=== PATIENT | male | born 1965 | race Caucasian/White ===

== ENCOUNTER 2017-02-13 00:42 | Observation (INO) ==
[2017-02-13 01:00] LABS: Basophils % 0.4 %; Eosinophils # 0.1 K/mcL (0.0-0.6); Eosinophils % 1.4 %; Hemoglobin 16.6 g/dL (12.9-16.9); Immature Granulocytes % 0.2 % (0-4); Lymphocytes # 4.7 K/mcL (0.6-4.6); Lymphocytes % 47.1 %; Mean Corpuscular HGB Conc 33.9 g/dL (31.6-35.5); Mean Corpuscular Hemoglobin 28.4 pg (28.0-33.3); Mean Corpuscular Volume 83.9 fL (83.0-100.0); Mean Platelet Volume 10.6 fL (9.4-12.4); Monocytes # 0.6 K/mcL (0.0-1.3); Neutrophils # 4.5 K/mcL (1.6-8.9); Platelet Count 138 K/mcL (140-400); Red Blood Count 5.84 M/mcL (4.19-5.50); Red Cell Distribution Width 12.9 % (11.5-14.5); Segmented Neutrophils % 44.9 %
[2017-02-13 01:06] LABS: INR 0.9; Prothrombin Time 10.1 Seconds (9.4-12.1)
[2017-02-13 01:16] LABS: Alanine Aminotransferase 21 Units/L (0-55); Albumin 3.6 g/dL (3.5-5.0); Albumin/Globulin Ratio 1.1 (1.1-2.2); Alkaline Phosphatase 67 Units/L (38-126); Aspartate Amino Transferase 17 Units/L (5-34); BUN/Creatinine Ratio 11 (6-26); Bilirubin,Direct 0.1 mg/dL (0.0-0.5); Bilirubin,Indirect 0.4 mg/dL (0.0-1.2); Bilirubin,Total 0.5 mg/dL (0.2-1.2); Blood Urea Nitrogen 11 mg/dL (8-26); Calcium 9.2 mg/dL (8.6-10.8); Carbon Dioxide 24 mEq/L (19-29); Chloride 107 mEq/L (98-109); Globulin 3.2 g/dL (2.4-3.5); Glucose 141 mg/dL (70-99); Lipase 53 Units/L (8-78); Osmolality,Calculated 296 (280-300); Potassium 3.3 mEq/L (3.5-4.5); Sodium 142 mEq/L (136-145); Total Protein 6.8 g/dL (6.0-8.3); eGFR For African Americans > 60 (> 60); eGFR For Non-African Americans > 60 (> 60)
[2017-02-13] MEDS ORDERED: *HR* HYDROmorphone (PF) 1 MG/ML SYRINGE IVP ONE (01:25)
[2017-02-13] MEDS ORDERED: Ondansetron ODT 4 MG TAB.RAPDIS SL ONE (01:25)
[2017-02-13] MEDS ORDERED: Nitroglycerin 0.4 MG TAB.SUBL SL PRN (01:58)
--- NOTE | 2017-02-13 02:14 | Emergency Department Note ---
Disposition Clinical Impression: Epigastric abdominal pain Chest pain Qualifiers: Chest pain type: unspecified Qualified Code(s): R07.9 - Chest pain, unspecified Disposition: Admitted As Inpatient Condition: Good Referrals: NO,PCP [Primary Care Provider] - Time of Disposition: 03:12 Chest Pain HPI - General Chief Complaint: ED Chest Pain Stated Complaint: CP Time Seen by Provider: 02/13/17 00:50 Source: patient Limitations: no limitations Vital Signs Reviewed: Yes Nursing Notes Reviewed: Yes - History of Present Illness HPI Narrative: 51-year-old male smoker presents with chest pain that awoke him from sleep just prior to arrival. Pain accompanied with with shortness of breath and nausea He describes pain radiating to his back. He mentions he also had RUE pain, but states he has had intermittent UE pain before. Patient does mention history of [place] and CAD, describes, [place] in 2012, as well as a cath without stents around that same time. Severity scale (1-10): 10 - Related Data Home Medications Medication Instructions Recorded Confirmed Aspirin 81 mg PO DAILY 02/26/16 02/26/16 Nitroglycerin [Nitrostat] 0.4 mg SL Q5M PRN 02/13/17 02/13/17 Allergies Allergy/AdvReac Type Severity Reaction Status Date / Time No Known Allergies Allergy Verified 01/11/16 16:28 All systems ED: reviewed and negative except as stated. Constitutional: Denies: fever, chills Eyes: Denies: eye discharge ENT ED: Denies: ear pain Cardiovascular: Reports: as per HPI Respiratory: Reports: as per HPI. Denies: wheezes, hemoptysis, stridor Gastrointestinal: Reports: as per HPI. Denies: diarrhea, constipation Genitourinary: Denies: dysuria Musculoskeletal: Denies: back pain Integumentary: Denies: rash Neurological: Denies: headache, weakness Endocrine: Denies: fatigue Hematological/Lymphatic: Denies: easy bleeding Allergic/Immunologic: Denies: facial swelling Chest Pain PMH - Past Medical History Medical history: Reports: CHF, coronary artery disease, myocardial infarction, other Surgical history: Reports: no surgical history Psychiatric history: Reports: no psych history - Social History Smoking Status: Current every day smoker Alcohol use: Reports: none Drug use: Reports: none Physical Exam - General Limitations: no limitations General appearance: alert, in no apparent distress - Head Head exam: normocephalic - Eye Eye exam: Present: EOMI - ENT ENT exam: normal exam, mucous membranes moist - Neck Neck exam: Present: full ROM - Chest Chest inspection: Present: normal inspection, symmetric chest wall rise - Respiratory Respiratory exam: Present: normal lung sounds bilaterally. Absent: respiratory distress - Cardiovascular Cardiovascular exam: Present: regular rate, normal rhythm - Abdominal Exam Abdominal exam: Present: soft, tenderness Abdominal tenderness: Present: epigastrium - Extremities Exam Extremities exam: Present: normal inspection, full ROM, normal capillary refill - Back Exam Back exam: Present: full ROM - Neurological Exam Neurological exam: Present: alert, oriented X3 - Psychiatric Psychiatric exam: Present: normal affect, normal mood - Skin Skin exam: Present: warm, dry, intact, normal color. Absent: rash, cyanosis, diaphoresis Course Course Narrative: Patient arrives by EMS with complaints of chest pain. Chest pain awoke him from sleep, was accompanied with nausea, radiation into her right upper extremity, accompanied with dyspnea. Patient given aspirin prior to arrival by EMS. On examination is in no acute distress is not toxic. Mild epigastric pain , wth worsening with palpation over his epigastric area. Vital stable. Workup initiated. Analgesics ordered. - Reevaluation(s) Reevaluation #1: Patient's labwork including GI labs and troponin unremarkable. CXR negative, EKG consistent with previous. Patient states no relief after Dilaudid and Zofran. will try nitro. Time: 01:58 Reevaluation #2: Patient did have pain relief with nitroglycerin. Discussed patient with Dr. Davis, also who also had face time with the patient, and performed a bedside ultrasound, it did show gallstones, with no gallbladder wall thickening pericholecystic fluid. Plan will need formal bladder ultrasound in the morning, however due to patient's cardiac risk factors, and improvement with nitroglycerin will disuss with hospitalist for admission. Time: 03:05 Reevaluation #3: Patient discussed with and accepted by hospitalist Dr. Hamlin. Time: 03:11 Vital Signs Temperature 98.6 F 02/13/17 00:49 Pulse Rate 81 02/13/17 00:49 Respiratory Rate 14 02/13/17 00:49 Blood Pressure 115/63 02/13/17 00:49 O2 Sat by Pulse Oximetry 98 02/13/17 00:49 Temperature 98.6 F 02/13/17 00:49 Pulse Rate 66 02/13/17 02:58 Respiratory Rate 18 02/13/17 03:29 Blood Pressure 92/51 02/13/17 03:29 O2 Sat by Pulse Oximetry 96 02/13/17 02:58 Oxygen Delivery Oxygen Delivery Room Air Chest Pain - MDM Narrative Medical decision making narrative: 51-year-old male smoker with known coronary artery disease presents with reported chest pain that awoke him from sleep just prior to arrival. Squad had reported patient had complained of chest pain, dyspnea, radiation to his right upper extremity. On examination patient also had described epigastric pain. His lab work tonight was unremarkable as was his chest x-ray and EKG. He had no relief of his symptoms after Dilaudid and Zofran, but did not have relief after one nitroglycerin. Bedside ultrasound was performed by Dr. Davis did show gallstones, but without any evidence of cholecystitis. Reviewed sign negative. Vitals are stable within normal limits. His pain had been improved. Patient was discussed with hospitalist and was accepted for further evaluation of epigastric pain, and likely cardiac rule out. - Lab Data Lab results reviewed: Yes I reviewed the patient's lab results. Result diagrams: 02/13/17 00:53 02/13/17 00:53 Lab Results 02/13/17 02/13/17 02/13/17 Range/Units 00:53 00:53 00:53 WBC 10.0 (4.3-11.1) K/mcL RBC 5.84 H (4.19-5.50) M/mcL Hgb 16.6 (12.9-16.9) g/dL Hct 49.0 (37.5-50.1) % MCV 83.9 (83.0-100.0) fL MCH 28.4 (28.0-33.3) pg MCHC 33.9 (31.6-35.5) g/dL RDW 12.9 (11.5-14.5) % Plt Count 138 L (140-400) K/mcL MPV 10.6 (9.4-12.4) fL Immature Gran % 0.2 (0-4) % Seg Neutrophils % 44.9 % Lymphocytes % 47.1 % Monocytes % 6.0 % Eosinophils % 1.4 % Basophils % 0.4 % Neutrophils # 4.5 (1.6-8.9) K/mcL Lymphocytes # 4.7 H (0.6-4.6) K/mcL Monocytes # 0.6 (0.0-1.3) K/mcL Eosinophils # 0.1 (0.0-0.6) K/mcL Basophils # 0.0 (0.0-0.2) K/mcL PT 10.1 (9.4-12.1) Seconds INR 0.9 APTT 26.0 (26.0-36.0) Seconds Sodium 142 (136-145) mEq/L Potassium 3.3 L (3.5-4.5) mEq/L Chloride 107 (98-109) mEq/L Carbon Dioxide 24 (19-29) mEq/L BUN 11 (8-26) mg/dL Creatinine 0.97 (0.72-1.25) mg/dL Est GFR ( Amer) > 60 (> 60) Est GFR (Non-Af Amer) > 60 (> 60) BUN/Creatinine Ratio 11 (6-26) Glucose 141 H (70-99) mg/dL Calculated Osmolality 296 (280-300) Calcium 9.2 (8.6-10.8) mg/dL Total Bilirubin 0.5 (0.2-1.2) mg/dL Direct Bilirubin 0.1 (0.0-0.5) mg/dL Indirect Bilirubin 0.4 (0.0-1.2) mg/dL AST 17 (5-34) Units/L ALT 21 (0-55) Units/L Alkaline Phosphatase 67 (38-126) Units/L Troponin I (0-0.03) ng/mL Serum Total Protein 6.8 (6.0-8.3) g/dL Albumin 3.6 (3.5-5.0) g/dL Globulin 3.2 (2.4-3.5) g/dL Albumin/Globulin Ratio 1.1 (1.1-2.2) Lipase 53 (8-78) Units/L 02/13/17 Range/Units 00:53 WBC (4.3-11.1) K/mcL RBC (4.19-5.50) M/mcL Hgb (12.9-16.9) g/dL Hct (37.5-50.1) % MCV (83.0-100.0) fL MCH (28.0-33.3) pg MCHC (31.6-35.5) g/dL RDW (11.5-14.5) % Plt Count (140-400) K/mcL MPV (9.4-12.4) fL Immature Gran % (0-4) % Seg Neutrophils % % Lymphocytes % % Monocytes % % Eosinophils % % Basophils % % Neutrophils # (1.6-8.9) K/mcL Lymphocytes # (0.6-4.6) K/mcL Monocytes # (0.0-1.3) K/mcL Eosinophils # (0.0-0.6) K/mcL Basophils # (0.0-0.2) K/mcL PT (9.4-12.1) Seconds INR APTT (26.0-36.0) Seconds Sodium (136-145) mEq/L Potassium (3.5-4.5) mEq/L Chloride (98-109) mEq/L Carbon Dioxide (19-29) mEq/L BUN (8-26) mg/dL Creatinine (0.72-1.25) mg/dL Est GFR ( Amer) (> 60) Est GFR (Non-Af Amer) (> 60) BUN/Creatinine Ratio (6-26) Glucose (70-99) mg/dL Calculated Osmolality (280-300) Calcium (8.6-10.8) mg/dL Total Bilirubin (0.2-1.2) mg/dL Direct Bilirubin (0.0-0.5) mg/dL Indirect Bilirubin (0.0-1.2) mg/dL AST (5-34) Units/L ALT (0-55) Units/L Alkaline Phosphatase (38-126) Units/L Troponin I 0.00 (0-0.03) ng/mL Serum Total Protein (6.0-8.3) g/dL Albumin (3.5-5.0) g/dL Globulin (2.4-3.5) g/dL Albumin/Globulin Ratio (1.1-2.2) Lipase (8-78) Units/L - Radiology Data Radiology results reviewed: Yes I reviewed the patient's radiology results. - EKG Data EKG attestation: Yes I reviewed and interpreted this EKG. EKG results narrative: Normal sinus rhythm, no ST changes or to signs of ischemia; right bundle branch block consistent with previous EKG Heart Score - Score History: Slightly Suspicious EKG: Normal Age: 45-65 Risk Factors: Equal/Greater than 3 risk factor or history of atherosclerotic disease Troponin: Less than normal limit HEART Score Total: 3
--- NOTE | 2017-02-13 03:05 | Emergency Department Note ---
Disposition Clinical Impression: Chest pain, Epigastric abdominal pain Disposition: Admitted As Inpatient Condition: Good General Adult HPI - General Chief complaint: ED Chest Pain Stated complaint: CP Time Seen by Provider: 02/13/17 00:50 Source: patient Limitations: no limitations - History of Present Illness Pain Scale: 10 - Related Data Home Medications Medication Instructions Recorded Confirmed Aspirin 81 mg PO DAILY 02/26/16 02/13/17 Nitroglycerin [Nitrostat] 0.4 mg SL Q5M PRN 02/13/17 02/13/17 Allergies Allergy/AdvReac Type Severity Reaction Status Date / Time No Known Allergies Allergy Verified 01/11/16 16:28 Constitutional: Denies: fever, chills Eyes: Denies: eye discharge ENT ED: Denies: ear pain Cardiovascular: Reports: as per HPI Respiratory: Reports: as per HPI. Denies: wheezes, hemoptysis, stridor Gastrointestinal: Reports: as per HPI. Denies: diarrhea, constipation Genitourinary: Denies: dysuria Musculoskeletal: Denies: back pain Integumentary: Denies: rash Neurological: Denies: headache, weakness Endocrine: Denies: fatigue Hematological/Lymphatic: Denies: easy bleeding Allergic/Immunologic: Denies: facial swelling Past Medical History - Past Medical History Medical history: Reports: CHF, coronary artery disease, myocardial infarction, other Surgical history: Reports: no surgical history Psychiatric history: Reports: no psych history - Social History Smoking Status: Current every day smoker Smokeless Tobacco Status: No Alcohol use: Reports: none Drug use: Reports: none Physical Exam - General Limitations: no limitations General appearance: alert, in no apparent distress Course Vital Signs Temperature 98.6 F 02/13/17 00:49 Pulse Rate 81 02/13/17 00:49 Respiratory Rate 14 02/13/17 00:49 Blood Pressure 115/63 02/13/17 00:49 O2 Sat by Pulse Oximetry 98 02/13/17 00:49 Temperature 97.5 F L 02/13/17 04:57 Pulse Rate 64 02/13/17 04:57 Respiratory Rate 22 02/13/17 04:57 Blood Pressure 109/64 02/13/17 04:57 O2 Sat by Pulse Oximetry 94 02/13/17 04:57 Oxygen Delivery Oxygen Delivery Room Air Medical Decision Making - Lab Data Result diagrams: 02/13/17 00:53 02/13/17 00:53 Lab Results 02/13/17 02/13/17 02/13/17 Range/Units 00:53 00:53 00:53 WBC 10.0 (4.3-11.1) K/mcL RBC 5.84 H (4.19-5.50) M/mcL Hgb 16.6 (12.9-16.9) g/dL Hct 49.0 (37.5-50.1) % MCV 83.9 (83.0-100.0) fL MCH 28.4 (28.0-33.3) pg MCHC 33.9 (31.6-35.5) g/dL RDW 12.9 (11.5-14.5) % Plt Count 138 L (140-400) K/mcL MPV 10.6 (9.4-12.4) fL Immature Gran % 0.2 (0-4) % Seg Neutrophils % 44.9 % Lymphocytes % 47.1 % Monocytes % 6.0 % Eosinophils % 1.4 % Basophils % 0.4 % Neutrophils # 4.5 (1.6-8.9) K/mcL Lymphocytes # 4.7 H (0.6-4.6) K/mcL Monocytes # 0.6 (0.0-1.3) K/mcL Eosinophils # 0.1 (0.0-0.6) K/mcL Basophils # 0.0 (0.0-0.2) K/mcL PT 10.1 (9.4-12.1) Seconds INR 0.9 APTT 26.0 (26.0-36.0) Seconds Sodium 142 (136-145) mEq/L Potassium 3.3 L (3.5-4.5) mEq/L Chloride 107 (98-109) mEq/L Carbon Dioxide 24 (19-29) mEq/L BUN 11 (8-26) mg/dL Creatinine 0.97 (0.72-1.25) mg/dL Est GFR ( Amer) > 60 (> 60) Est GFR (Non-Af Amer) > 60 (> 60) BUN/Creatinine Ratio 11 (6-26) Glucose 141 H (70-99) mg/dL Calculated Osmolality 296 (280-300) Calcium 9.2 (8.6-10.8) mg/dL Total Bilirubin 0.5 (0.2-1.2) mg/dL Direct Bilirubin 0.1 (0.0-0.5) mg/dL Indirect Bilirubin 0.4 (0.0-1.2) mg/dL AST 17 (5-34) Units/L ALT 21 (0-55) Units/L Alkaline Phosphatase 67 (38-126) Units/L Troponin I (0-0.03) ng/mL Serum Total Protein 6.8 (6.0-8.3) g/dL Albumin 3.6 (3.5-5.0) g/dL Globulin 3.2 (2.4-3.5) g/dL Albumin/Globulin Ratio 1.1 (1.1-2.2) Lipase 53 (8-78) Units/L 02/13/17 Range/Units 00:53 WBC (4.3-11.1) K/mcL RBC (4.19-5.50) M/mcL Hgb (12.9-16.9) g/dL Hct (37.5-50.1) % MCV (83.0-100.0) fL MCH (28.0-33.3) pg MCHC (31.6-35.5) g/dL RDW (11.5-14.5) % Plt Count (140-400) K/mcL MPV (9.4-12.4) fL Immature Gran % (0-4) % Seg Neutrophils % % Lymphocytes % % Monocytes % % Eosinophils % % Basophils % % Neutrophils # (1.6-8.9) K/mcL Lymphocytes # (0.6-4.6) K/mcL Monocytes # (0.0-1.3) K/mcL Eosinophils # (0.0-0.6) K/mcL Basophils # (0.0-0.2) K/mcL PT (9.4-12.1) Seconds INR APTT (26.0-36.0) Seconds Sodium (136-145) mEq/L Potassium (3.5-4.5) mEq/L Chloride (98-109) mEq/L Carbon Dioxide (19-29) mEq/L BUN (8-26) mg/dL Creatinine (0.72-1.25) mg/dL Est GFR ( Amer) (> 60) Est GFR (Non-Af Amer) (> 60) BUN/Creatinine Ratio (6-26) Glucose (70-99) mg/dL Calculated Osmolality (280-300) Calcium (8.6-10.8) mg/dL Total Bilirubin (0.2-1.2) mg/dL Direct Bilirubin (0.0-0.5) mg/dL Indirect Bilirubin (0.0-1.2) mg/dL AST (5-34) Units/L ALT (0-55) Units/L Alkaline Phosphatase (38-126) Units/L Troponin I 0.00 (0-0.03) ng/mL Serum Total Protein (6.0-8.3) g/dL Albumin (3.5-5.0) g/dL Globulin (2.4-3.5) g/dL Albumin/Globulin Ratio (1.1-2.2) Lipase (8-78) Units/L Attestation Statement - Attestation Attestation: I examined this patient and my medical decision-making was reviewed with the CASING FLUID TENDER/PA/Advanced Practice Nurse/Resident Physician. I agree with the documented findings, disposition and treatment plan as described except to the extent set forth below. [id number] time provided With history of coronary artery disease. Pain was epigastric. I did perform a [id number] right upper quadrant ultrasound and have identified suspected gallstones but without gallbladder wall thickening or pericholecystic fluid. Negative sonographic Frey sign. EKG reviewed by me
[2017-02-13] MEDS ORDERED: Naloxone 0.4 MG/ML INJ IVP PRN (03:17)
[2017-02-13] MEDS ORDERED: Ondansetron 4 MG/2 ML VIAL IVP PRN (03:17)
[2017-02-13] MEDS ORDERED: Potassium Chloride Elixir 20 MEQ/15 ML UDC PO ONE (03:21)
--- NOTE | 2017-02-13 04:15 | Internal Med History&Physical ---
Date of Encounter: 02/13/17 Time of Encounter: 04:12 Assessment and Plan (1) Chest pain Current visit: Yes Status: Acute pt with a history of HTN not being managed since he lost his insurance and has not had any followup, also has significant cigarette smoking history, his cath in 2009 reported; Left Main Coronary Artery, no obstructing lesions in the left main coronary artery. Left Anterior Descending Artery; a 20 to 30% diffuse stenosis in the left anterior descending artery, Left Circumflex Artery; luminal irregularities in the left circumflex artery, Right Coronary Artery; dominant to the posterior circulation, luminal irregularities in the right coronary artery he additionally has significant family history of premature CAD, we will admit for ACS r/o, his admission EKG is unchanged from prior, troponin is unremarkable, we will cycle trops, do telemonitoring, check A1c and Lipid profile NPO except meds for stress test in AM Qualifiers: Chest pain type: precordial pain Qualified Code(s): R07.2 - Precordial pain (2) Hypokalemia Current visit: Yes Status: Acute etiology unclear, will replace and follow BMP (3) HTN (hypertension) Current visit: Yes Status: Chronic he reports being prescribed antihypertensives but has not been adherent with it , his BP here is normotensive, we will monitor Qualifiers: Hypertension type: essential hypertension Qualified Code(s): I10 - Essential (primary) hypertension (4) Tobacco abuse Current visit: Yes Status: Chronic he used to smoke 2-3ppd but has cut down and still continues to reduce his use, we will encourage that Internal Medicine - H&P: HPI Chief complaint: Chest pain Admitted From: Emergency Dept Plans for Post Hospital Care: Home History of present illness: Mr. Wolff is a 51 year old male with a history of HTN not on medications/ tobacco abuse/non obstructive CAD was brought in via Squad for Chest pain. He was in his usual state of health until between 9:30pm to 10pm when he was rudely awoken with sharp right sided chest pain. It was 10/10 in severity, radiated to the back and lasted until it was relieved with nitro in the ER of [place]. Aspirin and Dilaudid did not relieve the pain earlier. The pain improved in terms of severity but became pressure-like and moved retrosternally, still lingering at 4-5/10 in severity. The pain was associated with dyspnea, nausea and dry heaving. No lightheadedness, diaphoresis, palpitations or feeling of apprehension. Of note he reports that this is his worst pain ever, he was admitted here in 2009 with NSTEMI and had a cardiac cath with findings of non obstructive CAD. Past Med Surg Social Fam HX - Past Medical History Source: patient Medical history: coronary artery disease (non obstructive), hypertension (not on medications), myocardial infarction (NSTEMI in 2010), other Psychiatric history: no psych history - Past Surgical History Surgical History: angioplasty/stent, other (cardiac cath in 2009) - Social History Smoking Status: Current every day smoker Packs per day: 1/2 ppd currently, used to be 2-3ppd years ago, smoked since 12 years Smokeless Tobacco Status: No Alcohol use: none Drug use: none Occupational status: employed (at [email or web address]) Current living situation: Home - Independent, With Family Activity Level: Independent ambulation Additional social history: and lives with his family, no children - Family History Mother Hx Family Cardiac Disorders: Yes (RI) - Additional Family History Additional family history: his sister had an RI in her early 30's and is s/p CABG, father of colon cancer, multiple family members on his side with cancer, mother is alive but has HTN, RI's, and dementia Internal Medicine - H&P: Meds Aspirin 81 mg PO DAILY 02/26/16 [History] Nitroglycerin [Nitrostat] 0.4 mg SL Q5M PRN 02/13/17 [History] Allergies No Known Allergies Allergy (Verified 01/11/16 16:28) All Systems PM: A 10-system review of systems was performed and is negative for pertinent findings except as documented above in the HPI. - Constitutional Vitals: Temp Pulse Resp BP Pulse Ox 98.6 F 66 18 92/51 96 02/13/17 00:49 02/13/17 02:58 02/13/17 03:29 02/13/17 03:29 02/13/17 02:58 PHYSICAL EXAMINATION: GENERAL: Adult male, lying in bed with no sign of distress, Alert, HEENT: NC/AT, EOMI, PERRLA, anicteric sclera, conjunctiva normal, clear nares, moist mucous membranes, RESP: lungs are clear to auscultation bilaterally, good AE bilaterally, No crackles or wheeze CARDIO: normal heart sounds, RRR with no murmurs, GI: Soft, full, no tenderness, no organomegaly felt, normal bowel sounds heard MUSCULOSKELETAL: no deformities noted, no discoloration NEUROLOGIC: CN 2-12 intact grossly. No motor/sensory deficit appreciated, PSYCHIATRY: AAO x 3. Mood is fair, SKIN: tattoos on trunk and upper extremities Internal Med - H&P Results - Labs CBC & Chem 7: 02/13/17 00:53 02/13/17 00:53 - EKG Data -: EKG Interpreted by Myself EKG shows normal: sinus rhythm (RBBB) - EKG Data Prior EKG available for review: yes When compared to previous EKG: there is no significant change - Diagnostic Studies Chest x-ray Status: image reviewed by me
[2017-02-13] MEDS ORDERED: *HR* Enoxaparin 40 MG/0.4 ML SYRINGE SQ SCH (06:00)
[2017-02-13 06:49] LABS: BUN/Creatinine Ratio 15 (6-26); Blood Urea Nitrogen 13 mg/dL (8-26); Calcium 9.1 mg/dL (8.6-10.8); Carbon Dioxide 24 mEq/L (19-29); Chloride 111 mEq/L (98-109); Chol/HDL Ratio 4.9 (0-4.9); Cholesterol 157 mg/dL (< 200); Glucose 120 mg/dL (70-99); HDL Cholesterol 32 mg/dL (40-59); LDL Cholesterol,Calculated 90 mg/dL (0-99); Magnesium 2.1 mg/dL (1.6-2.6); Osmolality,Calculated 291 (280-300); Phosphorous 2.7 mg/dL (2.3-4.7); Sodium 140 mEq/L (136-145); Triglycerides 173 mg/dL (< 150); eGFR For African Americans > 60 (> 60); eGFR For Non-African Americans > 60 (> 60)
[2017-02-13 06:53] LABS: Potassium 5.1 mEq/L (3.5-4.5)
[2017-02-13 07:07] LABS: Hemoglobin A1C 5.4 %
[2017-02-13] MEDS ORDERED: Aspirin 81 MG TAB.CHEW PO SCH (09:00)
--- NOTE | 2017-02-13 11:59 | Nuclear Medicine Stress Report ---
Exercise Nuclear Stress Name: Gael Wolff Date of Study: 02/13/2017 Date: 1965 Ht: 70.0 in Medical Record#: [id number] Age: 51 Wt: 156.0 lb Gender: Male Order #: [id number] Location: [facility] OP Room: Supervising Provider: Sabra Antonio CNP Reading Physician: Zaida Narayan DO Ordering Physician: Victorina Sullivan CNP Primary Care Physician: Indira Diego CNP Stress Technologist: Estella Zimmer, SALES MARKETING DIRECTOR,CP Autocad Designer: Geovanni Horton Indications: Chest Pain Impression: Perfusion imaging interpretation challenged by patient motion. There is a small sized, mild intensity distal anteroseptal wall perfusion abnormality during stress in which mild ischemia cannot be ruled out. Exercise ECG was non-diagnostic for ischemia. Exercise capacity was good. Normal hemodynamic response. Patient had no chest pain with stress. No arrhythmias noted with stress. Gated EF = 64%. History: History of Smoking Stress Test Summary: Stress Test Type: Treadmill Protocol: Alberto Baseline Information: Initial Heart Rate: 72 Blood Pressure: 102/70 Stress Information: Stress Time: 9 min 18 sec Test Terminated Due to (primary): Fatigue Maximum Blood Pressure: 148/62 Maximum Heart Rate: 151 Percent Maximum Heart Rate Achieved: 90 Double Product: 01008 METS Reached: 10.1 Symptoms: Fatigue Nuclear Summary: SPECT myocardial perfusion imaging using Tc99m Sestamibi given intravenously was performed at rest and following cardiac stress testing. The resting images were obtained following initial dose of 11.3 mCi. Following stress an additional dose of 35.3 mCi was given at peak exercise or 30 seconds post regadenoson infusion. Medication Given: Time Medication Dose Units Route Findings: Stress Note * Resting ECG demonstrated normal sinus rhythm with RBBB and nonspecific ST abnormalities. * Exercise ECG is non diagnostic for ischemia due to non-specific ST and T wave changes. * No arrhythmias were noted during stress. * Patient had no chest pain during stress. * The exercise capacity was good. Hemodynamic responses * Normal hemodynamic responses to exercise. Study Quality * Somewhat technically challenging due to horizontal patient motion. Gated EF % * Gated EF = 64%. Left Ventricle * The left ventricle is not dilated. NORMALS * Normal wall motion. TID * No evidence of transient ischemic dilatation. Lung Uptake * There is no evidence of increase lung uptake. PERFUSION * There is a small sized, mild intensity stress perfusion defect involving the distal anteroseptal wall. * Other areas demonstrate normal rest and stress perfusion. Updated by Zaida Narayan on 02/13/2017 11:53:28 AM electronically signed on 02/13/2017 11:54:16 AM with status of Final
[2017-02-13 15:26] VITALS: BP 138/75
--- NOTE | 2017-02-13 17:57 | Discharge Summary ---
Date of Encounter: 02/13/17 Time of Encounter: 10:10 - Discharge Diagnosis (1) Chest pain Priority: Primary Status: Acute Comments: Patient reports sudden onset chest pain, sharp that awakened him from sleep at 10:30 PM. Is right-sided and radiates into his back and right upper back. He does report dry heaving and diaphoresis with this pain. This area is tender to palpation right upper quadrant. Patient states that primarily he eats Poss to with Mosotho dressing enhanced images with mayonnaise. He had eaten the pasta with Mosotho dressing dressing at 8:30 PM last night. Patient had a stress test today that showed a small sized mild intensity distal anterior septal wall perfusion abnormality in which mild ischemia cannot be ruled out. I did speak with Dr. Dennis about this finding, this is not concerning and patient can follow up outpatient. Exercise ECG was nondiagnostic for ischemia. Gated EF is 64%. He did not have any chest pain with the stress test and there were no arrhythmias with the stress test. In addition to a stress test finding, I do believe that his right-sided chest pain with nausea vomiting and diaphoresis, radiation to right back is gallbladder related. The area is tender to palpation. Patient states that he is aware that he has gallstones. Liver panel is within normal limits. Triglycerides are elevated. Patient states that he does not follow-up with his primary care physician because he does not have insurance and he does not have the money to pay out of pocket. I did discuss with him the importance of following up to have this problem looked at and resolved. He is aware that in the future he may need surgery. Qualifiers: Chest pain type: unspecified Qualified Code(s): R07.9 - Chest pain, unspecified (2) Epigastric abdominal pain Priority: Secondary Status: Acute Comments: Plan as above. (3) HTN (hypertension) Priority: Secondary Status: Chronic Comments: Well-controlled in inpatient setting. Patient does have antihypertensive medication at home, however, he does not always take it. I have urged patient to continue taking his medication and follow up with primary care. Qualifiers: Hypertension type: essential hypertension Qualified Code(s): I10 - Essential (primary) hypertension (4) Tobacco abuse Priority: Secondary Status: Chronic Comments: Patient is not interested in smoking cessation at this time. (5) Hypokalemia Priority: Secondary Status: Acute Comments: Resolved. Potassium is 4.2 prior to discharge. - Discharge Medications Home Medications: Aspirin 162 mg PO DAILY 02/26/16 [History] Cyclobenzaprine [Flexeril] 10 mg PO TID tablet 02/13/17 [Rx] Nitroglycerin [Nitrostat] 0.4 mg SL Q5M PRN 02/13/17 [History] Allergies/Adverse Reactions: Allergies No Known Allergies Allergy (Verified 01/11/16 16:28) Procedures/tests Complete & Pending: Procedures Performed prior 72 hours Category Date Time Status NM guillermo perf SPECT multi [NM] Routine Exams 02/13/17 03:43 Taken SP exercise nuclear stress Routine Y 02/13/17 07:45 Completed Date of admission: 02/13/17 03:37 Primary care physician: Indira Diego CNP Discharging clinician: Aleena Singh Anticipated date of discharge: 02/13/17 - Patient Status Disposition: Home, Self-Care Functional capacity at discharge: independent ambulation Overall status at discharge: patient is back to baseline - Discharge Instructions Follow Up With: NO,PCP [Non-Partnered Physician] - Additional Instructions: Please follow up with cardiology in the office in the next 2 weeks. Follow up with your primary care physician in the next week or so for a recheck. You will need to see your doctor about your gallbladder and for continued testing. Try to eat a low fat diet. Return to the ER for pain that returns or for any other problem or concern. - Diet and Activity Activity: increase activity as tolerated Diet: low fat, low cholesterol Interval History: Patient presents to the emergency department last night for right upper quadrant pain that awakened him at 10:30 last night. He says that the pain is sharp and is and has right upper abdomen, low chest with radiation straight through to the back and right upper back. He reports dry heaving and diaphoresis with this. He presented to the emergency department got some relief with IV pain medication. His abdomen is tender to palpation in right upper quadrant and epigastric area. Patient states that he primarily eats pasta with oil and hands seem much as with mayonnaise. He says that he cannot afford much more than that to eat. Patient does state that he has a history of gallstones and has not followed up with that. I am unable to locate any documentation of this in our system. Patient did have a mild abnormality during the stress test in which mild ischemia could not be ruled out. I did speak with Dr. Dennis about this finding , he says that this is not concerning a patient can be followed in the office in the next 2 weeks. Exercise ECG was nondiagnostic for ischemia, patient did not have chest pain with stress and there were no arrhythmias noted. Gated EF is 64%. Patient's lungs are clear, S1-S2 regular rate and rhythm, abdomen is soft and tender to palpation in the epigastric and right upper quadrant. Bowel sounds are present. There is no peripheral edema and peripheral pulses are +2 upper and lower. Patient's potassium was normalized at 4.2 on discharge. All other labs are within normal limits. A1c is 5.4 despite elevated Accu-Cheks here. Patient is nonadherent to his antihypertensive medication regimen. He says that he had lost his insurance and was not able to always afford his medication. His blood pressure is well controlled during admission. I did urge patient to follow-up with primary care regarding his Accu-Cheks, his hypertension, medication refills, and for further testing of his gallbladder and or EGD for epigastric pain. Patient is stable and appropriate for discharge. Hospital course: Mr. Wolff is a 51 year old male Time spent discussing smoking cessation with patient: 3 to 10 minutes - Time Spent with Patient Total time spent providing and/or coordinating discharge services: Less than 30 minutes - Constitutional Vitals: Temp Pulse Resp BP Pulse Ox 97.7 F 72 15 138/75 96 02/13/17 15:25 02/13/17 15:25 02/13/17 15:25 02/13/17 15:25 02/13/17 15:25 General appearance: Present: cooperative, A&O X 3, pleasant, answers questions appropriately - Head Head exam: Present: normal inspection - Neck Neck exam general surgery: Present: normal inspection. Absent: lymphadenopathy , tenderness - Respiratory Respiratory exam: Present: CTAB. Absent: chest wall tenderness, rales, respiratory distress, rhonchi, stridor, wheezes - Cardiovascular Cardiovascular exam: Present: RRR, +S1, +S2. Absent: diastolic murmur, systolic murmur - GI/Abdominal GI/Abdominal exam: Present: normal bowel sounds, soft. Absent: distended, guarding, tenderness - Extremities Exam Extremities exam: Present: normal capillary refill, normal inspection, warm. Absent: pedal edema, tenderness - Neurological Exam Neurological exam: Present: alert, oriented X3, no focal deficits
--- NOTE | 2017-02-14 11:02 | Electrocardiograph Report ---
[address] [address] Test Date: 2017-02-13 Pat Name: Gael Wolff Department: 104 Room: 3B39 Gender: M Tobacco Classer: SITA : 1965 Requested By: Simoen Gambino Order Number: [id number] Reading MD: Brook Mitchell Measurements Intervals [place] Rate: 68 P: 58 MS: 131 QRS: 76 QRSD: 141 T: 50 QT: 419 QTc: 437 Interpretive Statements SINUS RHYTHM RIGHT BUNDLE BRANCH BLOCK Electronically Signed On 02-14-2017 11:00:21 EDT by Brook Mitchell
== END 2017-02-13 19:20 | disposition home or self-care (01) ==
LOC: EMEROO 00:42 → 3BNU 00:42
PROVIDERS: ADMIT Internal Medicine; ATTEND Nurse Practitioner Family

== ENCOUNTER 2021-11-10 04:58 | Observation (INO) ==
[2021-11-10] MEDS ORDERED: Isovue-370 500 ML BOTTLE IVP ONE (05:16)
[2021-11-10] MEDS ORDERED: Ondansetron 4 MG/2 ML VIAL IVP ONE (05:17)
[2021-11-10] MEDS ORDERED: 0.9 % Sodium Chloride 1,000 ML IVC ONE (05:18)
[2021-11-10] MEDS ORDERED: 0.9 % Sodium Chloride 500 ML IVC ONE (05:20)
[2021-11-10 05:32] LABS: VBG HCO3 25 mEq/L (21-27); VBG PCO2 45 mmHg (41-51); VBG PH 7.36 pH Units (7.32-7.42); VBG PO2 105 mmHg (25-50)
[2021-11-10 05:33] LABS: Basophils % 0.4 %; Eosinophils # 0.2 K/mcL (0.0-0.6); Eosinophils % 1.7 %; Hematocrit 48.2 % (37.5-50.1); Immature Granulocytes % 0.1 % (0-4); Lymphocytes # 4.4 K/mcL (0.6-4.6); Mean Corpuscular HGB Conc 33.2 g/dL (31.6-35.5); Mean Corpuscular Hemoglobin 29.3 pg (28.0-33.3); Mean Corpuscular Volume 88.1 fL (83.0-100.0); Mean Platelet Volume 10.1 fL (9.4-12.4); Monocytes # 0.8 K/mcL (0.0-1.3); Monocytes % 8.6 %; Neutrophils # 4.1 K/mcL (1.6-8.9); Platelet Count 184 K/mcL (140-400); Red Blood Count 5.47 M/mcL (4.19-5.50); Red Cell Distribution Width 12.9 % (11.5-14.5); Segmented Neutrophils % 43.2 %; White Blood Count 9.5 K/mcL (4.3-11.1)
[2021-11-10 05:43] LABS: Alanine Aminotransferase 14 Units/L (7-52); Albumin 3.8 g/dL (3.5-5.7); Albumin/Globulin Ratio 1.5 (1.1-2.2); Alkaline Phosphatase 66 Units/L (34-104); Aspartate Amino Transferase 12 Units/L (13-39); BUN/Creatinine Ratio 20 (6-26); Bilirubin,Total 0.5 mg/dL (0.3-1.0); Blood Urea Nitrogen 18 mg/dL (6-20); Calcium 8.4 mg/dL (8.6-10.3); Carbon Dioxide 25 mEq/L (23-29); Chloride 109 mEq/L (98-107); Ethanol < 10 mg/dL (Less than 10); Globulin 2.5 g/dL (2.4-3.5); Glucose 194 mg/dL (70-105); Lipase 30 Units/L (11-82); Magnesium 2.2 mg/dL (1.6-2.6); Osmolality,Calculated 301 (280-300); Potassium 3.8 mEq/L (3.5-5.1); Sodium 142 mEq/L (136-145); Total Protein 6.3 g/dL (6.4-8.9); Troponin I < 0.03 ng/mL (< 0.04); eGFR For African Americans > 60 (> 60); eGFR For Non-African Americans > 60 (> 60)
[2021-11-10 06:05] LABS: Platelet Estimate Normal (Normal); Reactive Lymphocytes Present (Not Present)
[2021-11-10 06:35] LABS: Influenza A PCR Negative (Negative); Influenza B PCR Negative (Negative); Resp. Syncytial Virus PCR Negative (Negative)
[2021-11-10 06:47] LABS: SARS-CoV-2 by PCR (In House) Negative (Negative)
[2021-11-10 07:37] LABS: Prothrombin Time 10.8 Seconds (9.4-12.1)
[2021-11-10 07:39] LABS: Activated Partial Thrombo Time 28.1 Seconds (26.0-36.0)
[2021-11-10] MEDS ORDERED: Acetaminophen 325 MG TABLET PO PRN (08:48)
[2021-11-10] MEDS ORDERED: *HR* HYDROcodone/Acet 5/325 mg TABLET PO PRN (08:48)
[2021-11-10] MEDS ORDERED: Naloxone 0.4 MG/ML INJ IVP PRN (08:48)
[2021-11-10] MEDS ORDERED: Ondansetron 4 MG/2 ML VIAL IVP PRN (08:48)
[2021-11-10] MEDS ORDERED: Perflutren Lipid Microsphere 1.3 ML in 0.9 % Sodium Chloride 8.7 ML IVP PRN (09:01)
[2021-11-10 09:46] LABS: Chol/HDL Ratio 4.6 (0-4.9); Cholesterol 156 mg/dL (< 200); HDL Cholesterol 34 mg/dL (40-59); LDL Cholesterol,Calculated 106 mg/dL (< 100); Magnesium 2.2 mg/dL (1.6-2.6); Phosphorous 1.5 mg/dL (2.7-4.5); Triglycerides 82 mg/dL (< 150)
[2021-11-10 09:47] LABS: Troponin I < 0.03 ng/mL (< 0.04)
[2021-11-10 09:58] LABS: Amphetamine Screen,Urine Negative ng/mL (Cutoff=1000); Barbiturate Screen,Urine Negative ng/mL (Cutoff=200); Benzodiazepines Screen,Urine Negative ng/mL (Cutoff=200); Cannabinoid Screen,Urine Negative ng/mL (Cutoff = 50); Cocaine Screen,Urine Negative ng/mL (Cutoff= 300); Opiate Screen,Urine Negative ng/mL (Cutoff=300); Phencyclidine Screen,Urine Negative ng/mL (Cutoff=25)
[2021-11-10 10:12] LABS: Bilirubin,Urine Negative (Negative); Blood,Urine Negative (Negative); Clarity,Urine Clear (Clear); Color,Urine Light-Yellow (Yellow); Glucose,Urine (UA) Normal (Normal); Ketones,Urine Negative (Negative); Leukocyte Esterase,Urine Negative (Negative); Nitrite,Urine Negative (Negative); Protein,Urine Trace mg/dL (Neg-Trace); Specific Gravity,Urine > 1.030 (1.010-1.025)
[2021-11-10] MEDS: *HR* Heparin 5,000 UNIT/ML VIAL SQ SCH ×3 (10:18→22:09)
[2021-11-10] MEDS ORDERED: Ibuprofen 600 MG TABLET PO ONE (14:50)
[2021-11-11 01:30] LABS: Hematocrit 46.5 % (37.5-50.1); Hemoglobin 15.4 g/dL (12.9-16.9); Mean Corpuscular HGB Conc 33.1 g/dL (31.6-35.5); Mean Corpuscular Hemoglobin 29.6 pg (28.0-33.3); Mean Corpuscular Volume 89.4 fL (83.0-100.0); Mean Platelet Volume 10.6 fL (9.4-12.4); Platelet Count 177 K/mcL (140-400); Red Cell Distribution Width 13.2 % (11.5-14.5); White Blood Count 9.4 K/mcL (4.3-11.1)
[2021-11-11 01:42] LABS: BUN/Creatinine Ratio 23 (6-26); Blood Urea Nitrogen 20 mg/dL (6-20); Calcium 8.8 mg/dL (8.6-10.3); Carbon Dioxide 24 mEq/L (23-29); Chloride 112 mEq/L (98-107); Glucose 108 mg/dL (70-105); Osmolality,Calculated 297 (280-300); Sodium 142 mEq/L (136-145); eGFR For African Americans > 60 (> 60); eGFR For Non-African Americans > 60 (> 60)
[2021-11-11] MEDS: *HR* Heparin 5,000 UNIT/ML VIAL SQ SCH ×2 (05:55→13:44)
[2021-11-11 12:35] VITALS: BP 181/84; PULSE 74; TEMP 98.2; O2SAT 98
== END 2021-11-11 14:55 | disposition home or self-care (01) ==
LOC: EMEROOARM 04:58 → 2ANU 04:58
PROVIDERS: ADMIT Internal Medicine; ATTEND Internal Medicine